=== PATIENT | female | born 1970 | race Caucasian/White ===

== ENCOUNTER 2016-08-30 20:49 | Emergency (ER) | payer BC, OTHER ==
--- NOTE | ~2016-08-30 | CR243 ---
[facility] A Service [facility] RADIOLOGY TEXT RESULTS PATIENT: JACOBY LEMUS LOCATION: SED : 68 UNIT #: [id number] AGE: [address]: Dinah Sung SEX: F ORDER DR: [id number] [address] [address] [id number] E MR#: [id number] Acc #: [id number] NAME: JACOBY LEMUS : 1970 SEX: F STUDY DATE/TIME: 08/30/2016 20:24 UNIT: SED ROOM: STUDY DESCRIPTION: CR Thoracic Spine 3 Views Attending Physician: Dinah Sung Pa-C Ordering Physician: Physician Non-Staff Primary Care Physician: Cailin Nogueira M.D. MEDICAL IMAGING REPORT This report is preliminary unless electronic signature is present. EXAM 3 views of the thoracic spine. Date: 08/30/2016. HISTORY Hit shoulder on car mirror with mid back pain and shoulder pain. Symptoms began yesterday. COMPARISON MRI thoracic spine 11/05/2014. FINDINGS No acute thoracic spine fracture or subluxation is seen. Small marginal endplate spurs are present, particularly in the mid cervical spine. Disc space height appears relatively well preserved. No osteolytic or osteoblastic abnormalities seen. Surgical chain sutures in the vicinity of the esophagogastric junction. IMPRESSION 1. Mild degenerative change of the thoracic spine. 2. No acute findings. 1. Dictated by... Yareli Pike M.D. THIS IS AN ELECTRONICALLY VERIFIED REPORT Yareli Pike M.D. at 08/31/2016 2:09 PM LLH/gz TD: 08/31/2016 09:27 JOB #: [id number] [facility] A Service [facility] RADIOLOGY TEXT RESULTS PATIENT: JACOBY LEMUS LOCATION: SED : 68 UNIT #: [id number] AGE: [address]: Dinah Sung SEX: F ORDER DR: MEDICAL IMAGING REPORT
--- NOTE | ~2016-08-30 | CR229 ---
[facility]. [facility] A Service of [facility] RADIOLOGY TEXT RESULTS PATIENT: JACOBY LEMUS LOCATION: SED : [birth year] UNIT #: [id number] AGE: [address]: Dinah Sung SEX: F ORDER DR: [id number] [address] [address] [id number] E MR#: [id number] Acc #: [id number] NAME: JACOBY LEMUS : 1970 SEX: F STUDY DATE/TIME: 08/30/2016 20:54 UNIT: SED ROOM: STUDY DESCRIPTION: CR Shoulder Min 2 View Lt Attending Physician: Dinah Sung Pa-C Ordering Physician: Physician Non-Staff Primary Care Physician: Cailin Nogueira M.D. MEDICAL IMAGING REPORT This report is preliminary unless electronic signature is present. EXAM Left shoulder, 3 views. HISTORY Shoulder pain after injury yesterday. Hit shoulder on car mirror. FINDINGS 3 views of the left shoulder demonstrate normal bone alignment. No fracture, joint space narrowing, or dislocation. Mild degenerative changes at the acromioclavicular joint. IMPRESSION No acute findings. Mild degenerative changes at the acromioclavicular joint. Dictated by... Jose Jeffries M.D. THIS IS AN ELECTRONICALLY VERIFIED REPORT Jose Jeffries M.D. at 08/31/2016 3:33 PM DFL/starr TD: 08/31/2016 09:39 JOB #: [id number] MEDICAL IMAGING REPORT
[~2016-08-30 20:49] MED LIST: ALBUTEROL17 GM INH; AREDS 2 PO; ASPIRIN81 M2 PO; BENZONATATE PO; CODEINE PO; DOXYCYCLIN25 MG/5 ML PO; ENBREL50 MG/M1 SQ; PRILOSEC20 MG PO; PROAIR HFA8.5 GM IH; ROBAXIN 750750 M1 PO; SINGULAIR5 MG; TOPAMAX50 MG PO; VOLTAREN75 MG; ZANTAC150 MG PO; [UNRECOGNIZED DRUG - OTHER] PO
[2016-09-19] MEDS ORDERED: IRON325 ( 652 PO (20:22)
[2016-09-19] MEDS ORDERED: CALCIUM CITRAT250 MG PO (20:23)
[2016-09-19] MEDS ORDERED: MULTI-DAY1 TAB PO (20:23)
== END 2016-08-30 21:56 | disposition home or self-care (01) ==
LOC: SED 20:49
DX: S40.012A Contusion of left shoulder, initial encounter (principal); Z88.0 Allergy status to penicillin; Z88.5 Allergy status to narcotic agent; Z88.2 Allergy status to sulfonamides; Z88.1 Allergy status to other antibiotic agents; Z79.899 Other long term (current) drug therapy; W22.8XXA Striking against or struck by other objects, initial encounter; Y92.9 Unspecified place or not applicable
CPT/HCPCS: 72072; 73030; 99284

== ENCOUNTER 2016-09-19 20:54 | Emergency (ER) | payer BC, OTHER ==
--- NOTE | ~2016-09-19 | CR93 ---
[facility]. [facility] A Service of [facility] & [facility] RADIOLOGY TEXT RESULTS PATIENT: JACOBY LEMUS LOCATION: SED : 68 UNIT #: [id number] AGE: [address]: OSWALDO REYES SEX: F ORDER DR: [id number] [address] [address] [id number] E MR#: [id number] Acc #: [id number] NAME: JACOBY LEMUS : 1970 SEX: F STUDY DATE/TIME: 09/19/2016 20:56 UNIT: SED ROOM: STUDY DESCRIPTION: CR Elbow Min 3 Views Lt Attending Physician: Oswaldo Reyes Ordering Physician: Physician Non-Staff Primary Care Physician: Cailin Nogueira M.D. MEDICAL IMAGING REPORT This report is preliminary unless electronic signature is present. EXAM Left elbow 3 views HISTORY Left elbow pain after falling over baby gate. FINDINGS AP and lateral examination of the elbow shows satisfactory articulation of the humerus with the proximal radius and ulna. There is no identifiable fracture, dislocation, joint effusion, or radiopaque foreign body in the soft tissues. IMPRESSION Normal elbow. Dictated by... Marianne Rankin M.D. THIS IS AN ELECTRONICALLY VERIFIED REPORT Marianne Rankin M.D. at 09/20/2016 10:06 AM Andrey TD: 09/20/2016 09:46 JOB #: [id number] MEDICAL IMAGING REPORT Page 1 of 1
--- NOTE | ~2016-09-19 | CR243 ---
[facility]. [facility] A Service of [facility] & [facility] RADIOLOGY TEXT RESULTS PATIENT: JACOBY LEMUS LOCATION: SED : [birth year] UNIT #: [id number] AGE: [address]: OSWALDO REYES SEX: F ORDER DR: [id number] [address] [address] [id number] E MR#: [id number] Acc #: [id number] NAME: JACOBY LEMUS : 1970 SEX: F STUDY DATE/TIME: 09/19/2016 20:56 UNIT: SED ROOM: STUDY DESCRIPTION: CR Thoracic Spine 3 Views Attending Physician: Oswaldo Reyes Ordering Physician: Physician Non-Staff Primary Care Physician: Cailin Nogueira M.D. MEDICAL IMAGING REPORT This report is preliminary unless electronic signature is present. EXAM Thoracic spine HISTORY Fell over baby gate several hours ago. Mid back pain. COMPARISON Thoracic spine, 08/30/2016 FINDINGS Two views of the thoracic spine demonstrates minimal degenerative changes. No fracture. Pedicles and paraspinal soft tissues appear normal. IMPRESSION Minimal degenerative changes thoracic spine. No change from study 2 weeks ago. Dictated by... Marianne Rankin M.D. THIS IS AN ELECTRONICALLY VERIFIED REPORT Marianne Rankin M.D. at 09/20/2016 10:06 AM Freedom TD: 09/20/2016 09:43 JOB #: [id number] MEDICAL IMAGING REPORT Page 1 of 1
--- NOTE | ~2016-09-19 | CR169 ---
[facility] A Service of [facility] & [facility] RADIOLOGY TEXT RESULTS PATIENT: JACOBY LEMUS LOCATION: SED : [birth year] UNIT #: [id number] AGE: [address]: OSWALDO REYES SEX: F ORDER DR: [id number] [address] [address] [id number] E MR#: [id number] Acc #: [id number] NAME: JACOBY LEMUS : 1970 SEX: F STUDY DATE/TIME: 09/19/2016 20:56 UNIT: SED ROOM: STUDY DESCRIPTION: CR Knee 2 Views Lt Attending Physician: Oswaldo Reyes Ordering Physician: Rashid Not Listed Primary Care Physician: Cailin Nogueira M.D. MEDICAL IMAGING REPORT This report is preliminary unless electronic signature is present. EXAM Left knee, 2 views. HISTORY Fell over a baby gate tonight. Knee pain. FINDINGS AP and lateral projection of the knee shows smooth articular anatomy without indication of fracture or dislocation at the major weight-bearing surface of the knee. There is no indication of radiopaque foreign body about the knee surface or joint effusion. IMPRESSION Normal knee. Dictated by... Marianne Rankin M.D. THIS IS AN ELECTRONICALLY VERIFIED REPORT Marianne Rankin M.D. at 09/20/2016 10:06 AM CARLITO/starr TD: 09/20/2016 09:51 JOB #: [id number] MEDICAL IMAGING REPORT Page 1 of 1
--- NOTE | ~2016-09-19 | CR229 ---
[facility]. [facility] A Service of [facility] RADIOLOGY TEXT RESULTS PATIENT: JACOBY LEMUS LOCATION: SED : [birth year] UNIT #: [id number] AGE: [address]: OSWALDO REYES SEX: F ORDER DR: [id number] [address] [address] [id number] E MR#: [id number] Acc #: [id number] NAME: JACOBY LEMUS : 1970 SEX: F STUDY DATE/TIME: 09/19/2016 20:56 UNIT: SED ROOM: STUDY DESCRIPTION: CR Shoulder Min 2 View Lt Attending Physician: Oswaldo Reyes Ordering Physician: Physician Non-Staff Primary Care Physician: Cailin Nogueira M.D. MEDICAL IMAGING REPORT This report is preliminary unless electronic signature is present. EXAM Left shoulder 3 views HISTORY Fell over baby gate several hours ago. COMPARISON Left shoulder films, 08/30/2016 FINDINGS Three views of the left shoulder demonstrates AC joint arthropathy. No fracture or dislocation. Soft tissues appear normal. IMPRESSION Minimal left shoulder AC joint arthropathy. No change from shoulder films 2 weeks ago. Dictated by... Marianne Rankin M.D. THIS IS AN ELECTRONICALLY VERIFIED REPORT Marianne Rankin M.D. at 09/20/2016 10:06 AM Freedom TD: 09/20/2016 09:45 JOB #: [id number] MEDICAL IMAGING REPORT Page 1 of 1
[~2016-09-19 20:54] MED LIST changes: +CALCIUM CITRAT250 MG PO; +IRON325 ( 652 PO; +MULTI-DAY1 TAB PO
== END 2016-09-19 22:17 | disposition home or self-care (01) ==
LOC: SED 20:54
DX: S29.012A Strain of muscle and tendon of back wall of thorax, initial encounter (principal); S46.912A Strain of unspecified muscle, fascia and tendon at shoulder and upper arm level, left arm, initial encounter; S56.912A Strain of unspecified muscles, fascia and tendons at forearm level, left arm, initial encounter; S80.02XA Contusion of left knee, initial encounter; I25.2 Old myocardial infarction; Z88.0 Allergy status to penicillin; W01.0XXA Fall on same level from slipping, tripping and stumbling without subsequent striking against object, initial encounter; Y92.009 Unspecified place in unspecified non-institutional (private) residence as the place of occurrence of the external cause
CPT/HCPCS: 36415; 72072; 73030; 73080; 73560; 96374; 96375; 99284; J1170; J2405

== ENCOUNTER → 2016-09-27 | Outpatient (CLI) | payer BC, OTHER ==
[~2016-09-27] MED LIST changes: +ASPIRIN81 MG PO; +EYE VITAMIN-MI1 EACH PO; +ZANTAC150 M1 PO
--- NOTE | ~2016-09-27 | CR252 ---
[facility]. [facility] A Service of [facility] & [facility] RADIOLOGY TEXT RESULTS PATIENT: JACOBY LEMUS LOCATION: [facility] : [birth year] UNIT #: [id number] AGE: [address]: CAILIN NEWMAN MD SEX: F ORDER DR: [id number] [place] [id number] O MR#: [id number] Acc #: [id number] NAME: JACOBY LEMUS : 1970 SEX: F STUDY DATE/TIME: 09/27/2016 20:18 UNIT: [facility] ROOM: STUDY DESCRIPTION: CR Tibia and Fibula 2 Views Lt Attending Physician: Cailin Newman M.D. Referring Physician: Cailin Newman M.D. Ordering Physician: Cailin Newman M.D. Primary Care Physician: Cailin Newman M.D. MEDICAL IMAGING REPORT This report is preliminary unless electronic signature is present. EXAM Left tibia-fibula 2 views INDICATIONS 46-year-old female with pain for 5 weeks lower leg. No comparisons. FINDINGS No fracture or dislocation. Soft tissue structures are unremarkable. IMPRESSION Negative Dictated by... Teddy Rankin M.D. THIS IS AN ELECTRONICALLY VERIFIED REPORT Teddy Rankin M.D. at 09/28/2016 8:20 AM CHINEDU/caroline TD: 09/28/2016 07:33 JOB #: [id number] MEDICAL IMAGING REPORT Page 1 of 1
== END | disposition home or self-care (01) ==
LOC: SRAD 20:07
DX: M79.605 Pain in left leg (principal)
CPT/HCPCS: 73590

== ENCOUNTER → 2016-11-01 | Outpatient (CLI) | payer BC, OTHER ==
--- NOTE | ~2016-11-01 | MR181 ---
[facility] A Service [facility] RADIOLOGY TEXT RESULTS PATIENT: JACOBY LEMUS LOCATION: [facility] : [birth year] UNIT #: [id number] AGE: [address]: AUSTIN LONDON SEX: F ORDER DR: [id number] [address] [address] [id number] O MR#: [id number] Acc #: [id number] NAME: JACOBY LEMUS : 1970 SEX: F STUDY DATE/TIME: 11/01/2016 13:47 UNIT: [facility] ROOM: STUDY DESCRIPTION: MR Tibia and Fibula Wo Cont Lt Attending Physician: Austin London M.D. Referring Physician: Austin London M.D. Ordering Physician: Physician Non-Staff Primary Care Physician: Cailin Nogueira M.D. MRI CENTER REPORT This report is preliminary unless electronic signature is present. EXAM Left leg MRI without contrast 11/01/2016 HISTORY 46-year-old female with left leg pain for 3 months. Patient states pain in the proximal 2/3rds of the leg along the anterolateral aspect. No specific injury. No prior left leg surgery. Order requests evaluation for stress fracture. COMPARISON STUDIES Comparison left leg x-rays 09/27/2016. TECHNIQUE Routine unenhanced multiplanar, multisequence high field MR imaging of the left leg was performed. FINDINGS Bone marrow signal in the tibia and fibula is within normal limits. No evidence of a stress fracture or stress reaction. There is some minimal edema along the musculotendinous complex of the medial soleus and medial head of the gastrocnemius, which may represent a low grade muscle strain. Remainder of the muscle signal is within normal limits. No abnormal fluid collections. Vascular structures appear unremarkable. IMPRESSION 1. No evidence of a stress fracture or stress reaction. 2. Minimal edema noted along the musculotendinous complex of the medial soleus and medial head of the gastrocnemius. This may represent a low grade muscle strain. Dictated by... Brian Natarajan M.D. [facility] A Service [facility] RADIOLOGY TEXT RESULTS PATIENT: JACOBY LEMUS LOCATION: [facility] : [birth year] UNIT #: [id number] AGE: [address]: AUSTIN LONDON SEX: F ORDER DR: THIS IS AN ELECTRONICALLY VERIFIED REPORT Brian Natarajan M.D. at 11/02/2016 4:43 PM Tana TD: 11/01/2016 18:39 JOB #: [id number] MRI CENTER REPORT Page 1 of 1
== END | disposition home or self-care (01) ==
LOC: SMRI 13:19
DX: M84.362A Stress fracture, left tibia, initial encounter for fracture (principal); R60.0 Localized edema
CPT/HCPCS: 73718

== ENCOUNTER → 2016-11-29 | Outpatient (CLI) | payer BC, OTHER ==
--- NOTE | ~2016-11-29 | MY11 ---
[facility] A Service of [facility] RADIOLOGY TEXT RESULTS PATIENT: JACOBY LEMUS LOCATION: [facility] : [birth year] UNIT #: [id number] AGE: [address]: CAILIN NEWMAN MD SEX: F ORDER DR: [id number] [address] [address] [id number] O MR#: [id number] Acc #: [id number] NAME: JACOBY LEMUS : 1970 SEX: F STUDY DATE/TIME: 11/29/2016 12:04 UNIT: [facility] ROOM: STUDY DESCRIPTION: MY Mammogram Screening Dig Isaiah Attending Physician: Cailin Newman M.D. Referring Physician: Cailin Newman M.D. Ordering Physician: Cailin Newman M.D. Primary Care Physician: Cailin Newman M.D. MEDICAL IMAGING REPORT This report is preliminary unless electronic signature is present. EXAM Digital screening mammogram 11/29/2016 [facility] HISTORY 46-year-old woman strong family history, mother/sister/maternal aunt. Annual screening. COMPARISON: Mammograms date to 04/07/2010 with most recent 11/17/2015. FINDINGS Digital imaging of each breast was completed utilizing a two-view examination of each breast in craniocaudal and mediolateral-oblique projections. Review and interpretation of digital mammograms include a second review in conjunction with FDA-approved CAD device. There is a normal parenchymal presentation bilaterally consistent with the patient's age. There are no breast masses imaged and no parenchymal asymmetry is visualized. There are no suspicious microcalcifications and I see no focal architectural disturbance. IMPRESSION Negative screening digital mammogram. One-year followup recommended. Addendum: Breast parenchyma is fatty replaced. Patients over the age of 40 are entered into a reminder system with target due date for the next mammogram. A result letter will also be sent to the patient. BIRADS: 1 Negative [facility] A Service of [facility] & [facility] RADIOLOGY TEXT RESULTS PATIENT: JACOBY LEMUS LOCATION: [facility] : [birth year] UNIT #: [id number] AGE: [address]: CAILIN NEWMAN MD SEX: F ORDER DR: Dictated by... Cristóbal Carter M.D. THIS IS AN ELECTRONICALLY VERIFIED REPORT Cristóbal Carter M.D. at 11/30/2016 1:24 PM DEBI/caroline TD: 11/29/2016 13:22 JOB #: [id number] MEDICAL IMAGING REPORT Page 1 of 1
== END | disposition home or self-care (01) ==
LOC: SMAM 11:27
DX: Z12.31 Encounter for screening mammogram for malignant neoplasm of breast (principal); Z80.3 Family history of malignant neoplasm of breast
CPT/HCPCS: G0202

== ENCOUNTER 2017-03-09 18:01 | Emergency (ER) | payer BC, OTHER ==
--- NOTE | ~2017-03-09 | CT2 ---
[facility] A Service of [facility] RADIOLOGY TEXT RESULTS PATIENT: JACOBY LEMUS LOCATION: SED : 68 UNIT #: [id number] AGE: [address]: Dinah Sung SEX: F ORDER DR: [id number] [address] [address] [id number] E MR#: [id number] Acc #: [id number] NAME: JACOBY LEMUS : 1970 SEX: F STUDY DATE/TIME: 03/09/2017 20:41 UNIT: SED ROOM: STUDY DESCRIPTION: CT Abd and Pelv W Cont Attending Physician: Dinah Sung Pa-C Ordering Physician: Virgie Keita M.D. Primary Care Physician: Cailin Nogueira M.D. MEDICAL IMAGING REPORT This report is preliminary unless electronic signature is present. EXAM CT abdomen and pelvis with IV contrast HISTORY Abdomen pain for 4 days. Nausea and diarrhea. FINDINGS CT abdomen and pelvis was performed with IV contrast. This CT examination was performed with one or more of the following radiation dose reduction techniques: automatic exposure control, adjustment of mA and/or kV according to patient size, and iterative reconstruction. CT ABDOMEN: Postop changes of gastrojejunostomy. Cholecystectomy. The liver, spleen, pancreas, kidneys, and adrenal glands are normal. Normal caliber abdominal aorta. Incidental 1 cm cyst in the medial right hepatic lobe. Normal caliber small and large bowel. No ascites. CT PELVIS: Hysterectomy. Urinary bladder is normal. No bowel dilatation. No ascites or inflammatory stranding. IMPRESSION 1. No acute findings in the abdomen or pelvis. 2. No bowel obstruction or urinary obstruction. 3. Cholecystectomy, hysterectomy and postop changes of gastrojejunostomy. Dictated by... Jose Jeffries M.D. THIS IS AN ELECTRONICALLY VERIFIED REPORT Jose Jeffries M.D. at 03/10/2017 11:37 PM DFL/mjs [facility] A Service of [facility] RADIOLOGY TEXT RESULTS PATIENT: JACOBY LEMUS LOCATION: [facility] : [birth year] UNIT #: [id number] AGE: [address]: Dinah Sung SEX: F ORDER DR: TD: 03/10/2017 12:34 JOB #: [id number] MEDICAL IMAGING REPORT Page 1 of 1
[~2017-03-09 18:01] MED LIST changes: -ASPIRIN81 MG PO; -EYE VITAMIN-MI1 EACH PO; -ZANTAC150 M1 PO
[2017-03-09] MEDS ORDERED: TOPAMAX50 MG PO (18:24)
[2017-03-09] MEDS ORDERED: ASPIRIN81 MG PO (18:24)
[2017-03-09] MEDS ORDERED: ZANTAC150 M1 PO (18:25)
[2017-03-09] MEDS ORDERED: EYE VITAMIN-MI1 EACH PO (18:26)
[2017-03-09 19:21] LABS: URINE SOURCE CLEAN CATCH
[2017-03-09 19:24] LABS: URINE APPEARANCE CLEAR; URINE BILIRUBIN NEG (NEG); URINE BLOOD NEG (NEG); URINE COLOR YELLOW; URINE GLUCOSE NEG (NORM); URINE KETONE NEG (NEG); URINE LEUKOCYTE ESTERASE NEG (NEG); URINE NITRATE NEG (NEG); URINE PROTEIN NEG (NEG); URINE SPECIFIC GRAVITY 1.015 (1.003-1.035)
[2017-03-09 19:26] LABS: MICRO INDICATED? NO
[2017-03-09 19:42] LABS: BASOPHIL% 0.7 % (0-2.5); EOSINOPHIL# 0.2 X10e3 (0-0.7); EOSINOPHIL% 3.2 % (0.0-7.0); HEMATOCRIT 38.3 % (35.0-45.0); HEMOGLOBIN 12.9 gm/dL (12.0-16.0); LYMPHOCYTE# 2.3 X10e3 (1.0-3.5); LYMPHOCYTE% 37.3 % (17.0-45.0); MEAN CELL VOLUME 93.6 FL (83-96); MEAN CORPUSCULAR HEMOGLOBIN 31.5 PG (28-34); MEAN CORPUSCULAR HGB CONC 33.6 g/dL (30-36); MEAN PLATELET VOLUME 8.6 FL (6.5-11.5); MONOCYTE# 0.7 X10e3 (0-1.0); MONOCYTE% 10.5 % (3.0-12.0); NEUTROPHIL% 48.3 % (40-75); PLATELET COUNT 219 X10e3 (140-420); WHITE BLOOD COUNT 6.3 X10e3 (4.0-10.5)
[2017-03-09 19:43] LABS: DIFF IND NO
[2017-03-09 19:57] LABS: ALBUMIN SERUM 3.6 g/dL (3.5-5.0); BILIRUBIN, DIRECT 0.1 mg/dL (0.0-0.2); BILIRUBIN,INDIRECT 0.3 mg/dL (0.0-0.9); BILIRUBIN,TOTAL 0.4 mg/dL (0.2-2.0); CALCIUM SERUM 8.4 mg/dL (8.4-10.2); CREATININE SERUM 0.7 mg/dL (0.6-1.4); GLOM FILT RATE Estimated 102.5 mL/min (>60); POTASSIUM 3.6 mmol/L (3.5-5.1); PROTEIN TOTAL SERUM 6.2 g/dL (6.0-8.3)
== END 2017-03-09 22:28 | disposition home or self-care (01) ==
LOC: SED 18:01
PROVIDERS: Physician Assistant
DX: R10.9 Unspecified abdominal pain (principal); J45.909 Unspecified asthma, uncomplicated; K21.9 Gastro-esophageal reflux disease without esophagitis; G43.909 Migraine, unspecified, not intractable, without status migrainosus; Z90.710 Acquired absence of both cervix and uterus; Z88.0 Allergy status to penicillin; Z88.5 Allergy status to narcotic agent
CPT/HCPCS: 36415; 74177; 80048; 80076; 81003; 83690; 85025; 96361; 96374; 99284; J2405; Q9967